=== PATIENT | female | born 1955 | race Two or more races ===

== ENCOUNTER 2018-06-28 08:55 | Emergency (ER) | payer BC ==
[~2018-06-28] VITALS: Ht 162.6 cm; Wt 65.0 kg
[2018-06-28] MEDS ORDERED: SODIUM CHLORIDE 0.9% 1,000ML IVBOLUS ONE (09:30)
[2018-06-28] MEDS ORDERED: DIPHENHYDRAMINE 50 MG/ML, 1ML IVPush ONE ×2 (09:30→10:30)
[2018-06-28] MEDS ORDERED: KETOROLAC 30 MG/1 ML IVPush ONE (09:30)
[2018-06-28] MEDS ORDERED: PROCHLORPERAZINE 5 MG/ML, 2ML IVPush ONE (09:30)
[2018-06-28] MEDS ORDERED: PLEASE ENTER ALLERGIES MC SCH (09:30)
[2018-06-28] MEDS ORDERED: SODIUM CHLORIDE FLUSH 10ML SYR IVF ONE (09:30)
[2018-06-28] MEDS ORDERED: KETOROLAC 30 MG/1 ML ONE (09:44)
[2018-06-28] MEDS ORDERED: DIPHENHYDRAMINE 50 MG/ML, 1ML ONE ×2 (09:44→10:41)
[2018-06-28] MEDS ORDERED: PROCHLORPERAZINE 5 MG/ML, 2ML ONE (09:44)
[2018-06-28] MEDS ORDERED: ONDANSETRON 2MG/ML, 2ML IVPush ONE (10:30)
[2018-06-28] MEDS ORDERED: ONDANSETRON 2MG/ML, 2ML ONE (10:41)
[2018-06-28 11:32] VITALS: BP 127/82
== END 2018-06-28 11:34 | disposition home or self-care (01) ==
LOC: ED 11:18
DX: G43.019 Migraine without aura, intractable, without status migrainosus (principal); R11.2 Nausea with vomiting, unspecified
CPT/HCPCS: 96361; 96374; 96375; 96376; 99285; J0780; J1200; J1885; J2405; J7030